=== PATIENT | female | born 1990 | race Caucasian/White ===

== ENCOUNTER 2021-11-27 13:37 | Emergency (ER) | payer OTHER ==
[~2021-11-27] VITALS: Ht 167.6 cm; Wt 63.5 kg
--- NOTE | 2021-11-27 13:37 | NUR ---
BIB SELF C/O HEADACHE, BLURRING OF VISION AND L ARM NUMBNESS STARTED 2 hrs [employer] TRAIN[employer]. TO ER BED 9, HOOKED TO MONITOR, CHANGED TO HOSP GOWN, WARM BLANKET PROVIDED. PATIENT AAO x 4. BREATHING EVEN AND UNLABORED. AWAITING MD SOUZA
--- NOTE | 2021-11-27 14:11 | NUR ---
DR DEL CASTILLO AT BEDSIDE
--- NOTE | 2021-11-27 14:29 | NUR ---
URINE SAMPLE COLLECTED AND SENT TO LAB. CALLED MAIN LAB FOR PROFESSIONAL WRESTLER
--- NOTE | 2021-11-27 15:05 | NUR ---
PT IS WHEELED TO CT SCAN VIA [facility].
[2021-11-27] MEDS ORDERED: CODE1CAP32 PO (16:20)
--- NOTE | 2021-11-27 16:24 | NUR ---
Note margy in EDM - 11/27/21 at 1625 by PAMELA CAME WITH IV CANNULA G20 ON LEFT AC. FLUSHED. SITE IS PATENT. BLOOD DRAWN AND SENT TO LAB.
--- NOTE | 2021-11-27 16:41 | NUR ---
Patient discharged to home in stable condition. Written and verbal after care instructions given. Patient verbalizes understanding of instruction.
[2021-11-27 16:42] VITALS: BP 110/60
== END 2021-11-27 16:43 | disposition home or self-care (01) ==
LOC: ER 14:58
DX: R51.9 Headache, unspecified (principal); Z60.2 Problems related to living alone; Z79.899 Other long term (current) drug therapy
CPT/HCPCS: 70450-TC; 84703-TC

== ENCOUNTER 2023-09-23 14:37 | Emergency (ER) | payer OTHER ==
[~2023-09-23] VITALS: Ht 167.6 cm; Wt 65.8 kg
[~2023-09-23 14:37] MED LIST: CODE1CAP32 PO
[2023-09-23] MEDS ORDERED: TDAP [DIPH/PERTUSSIS/TET] 0.5 ML VIAL IM ONE (15:38)
[2023-09-23] MEDS: TDAP [DIPH/PERTUSSIS/TET] 0.5 ML VIAL IM ONE (15:45)
[2023-09-23 19:14] VITALS: BP 117/62; TEMP 98.5; O2SAT 96
== END 2023-09-23 19:28 | disposition home or self-care (01) ==
LOC: ER 14:48
DX: S80.212A Abrasion, left knee, initial encounter (principal); M25.571 Pain in right ankle and joints of right foot; Z60.2 Problems related to living alone; W01.0XXA Fall on same level from slipping, tripping and stumbling without subsequent striking against object, initial encounter; Y93.89 Activity, other specified; Y92.89 Other specified places as the place of occurrence of the external cause; Y99.8 Other external cause status
CPT/HCPCS: 73564-TC; 73610-TC; 73630-TC; 90715

== ENCOUNTER 2023-10-02 13:48 | Emergency (ER) | payer OTHER ==
[~2023-10-02] VITALS: Ht 167.6 cm; Wt 64.4 kg
[2023-10-02 15:32] VITALS: BP 134/78; TEMP 98.4; O2SAT 100
== END 2023-10-02 15:38 | disposition home or self-care (01) ==
LOC: ER 13:54
DX: S93.401A Sprain of unspecified ligament of right ankle, initial encounter (principal); Z60.2 Problems related to living alone; X58.XXXA Exposure to other specified factors, initial encounter; Y93.89 Activity, other specified; Y92.89 Other specified places as the place of occurrence of the external cause; Y99.8 Other external cause status
CPT/HCPCS: 73610-TC